=== PATIENT | male | born 1995 | race Caucasian/White ===

== ENCOUNTER → 2017-09-09 | Day surgery (SDC) | payer BC ==
--- NOTE | 2017-09-09 09:03 | Progress Note ---
Provider Note Provider Note: patient does not require PEG tube any further patient is eating has not use PEG for several weeks no dysphagia, has been gaining weight patient is placed in the supine positive 5cc of fluid removed from the Elo 20F tube tube removed in 1 piece stoma area is cleaned and taped with gauze he is discharged in good condition discharge date: 09/09/17 discharge diet: regular discharge activity: regular follow up PRN
== END ==
LOC: END 07:53
PROVIDERS: ATTEND Internal Medicine Gastroenterology
DX: Z43.1 Encounter for attention to gastrostomy (principal); Z53.8 Procedure and treatment not carried out for other reasons